=== PATIENT | female | born 1950 | race Caucasian/White ===

== ENCOUNTER → 2016-07-24 | Outpatient (CLI) | payer OTHER ==
--- NOTE | 2016-07-24 14:01 | DI ---
LEFT ANKLE, 07/24/2016 1:29 PM: Clinical History: Acute left ankle pain. Previous Exam: None at this facility. 3 views are submitted. There is no acute soft tissue, osseous, or joint abnormality. The tibiotalar j oint space is intact. There has been partial collapse of the anterior and posterior aspect of the anna us with loss of Boehler's angle and with marked bony proliferative change in the talonavicular joint space. This patient may have had a previous fracture of the lateral malleolus. Arthritic changes are also present in the calcaneocuboidal joint space. If further evaluation is required, a CT scan of the ankle would be recommended. Reading: There has been partial collapse of the anterior and posterior margins of the talus with extensive bon y proliferative change and arthritic change involving the talonavicular joint and the calcaneal cuboi shankar joint. The tibiotalar joint is intact. Consider a CT scan of the ankle if further evaluation of t his area is required.
== END ==
LOC: ORTHO 13:37
PROVIDERS: ATTEND Orthopaedic Surgery
DX: M25.572 Pain in left ankle and joints of left foot (principal); M19.072 Primary osteoarthritis, left ankle and foot
CPT/HCPCS: 73610

== ENCOUNTER → 2016-08-30 | Outpatient (CLI) | payer OTHER ==
--- NOTE | 2016-08-30 23:29 | DI ---
XR FOOT COMPLETE MIN 3VW WB,08/30/2016 1:31 PM: Clinical History: Left foot pain Previous Exam: Jul 24 2016 Findings: 3 views of the left foot are obtained in the weightbearing configuration, and demonstrate advanced de generative changes of the left talonavicular joint. Skeletal structures are unremarkable. No fractures are seen. 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
== END ==
LOC: ORTHO 13:29
PROVIDERS: ATTEND Orthopaedic Surgery
DX: M25.572 Pain in left ankle and joints of left foot (principal); M19.072 Primary osteoarthritis, left ankle and foot
CPT/HCPCS: 73630